=== PATIENT | female | born 1990 | race Caucasian/White ===

== ENCOUNTER → 2017-05-02 | Outpatient (CLI) | payer OTHER | LOC: FIMAGING 14:13 | PROVIDERS: ATTEND Student in an Organized Health Care Education/Training Program | DX: Z34.01 Encounter for supervision of normal first pregnancy, first trimester (principal); Z3A.12 12 weeks gestation of pregnancy ==

== ENCOUNTER → 2017-06-20 | Outpatient (CLI) | payer OTHER | LOC: FIMAGING 11:56 | PROVIDERS: ATTEND Student in an Organized Health Care Education/Training Program | DX: O28.5 Abnormal chromosomal and genetic finding on antenatal screening of mother (principal); Z3A.19 19 weeks gestation of pregnancy ==

== ENCOUNTER → 2017-07-11 | Outpatient (CLI) | payer OTHER | LOC: FIMAGING 08:51 | PROVIDERS: ATTEND Student in an Organized Health Care Education/Training Program | DX: O09.292 Supervision of pregnancy with other poor reproductive or obstetric history, second trimester (principal); Z3A.22 22 weeks gestation of pregnancy ==

== ENCOUNTER → 2017-08-04 | Outpatient (CLI) | payer OTHER | LOC: FIMAGING 09:18 | PROVIDERS: ATTEND Student in an Organized Health Care Education/Training Program | DX: Z34.02 Encounter for supervision of normal first pregnancy, second trimester (principal); Z3A.25 25 weeks gestation of pregnancy ==

== ENCOUNTER → 2017-09-08 | Outpatient (CLI) | payer OTHER | LOC: FIMAGING 09:14 | PROVIDERS: ATTEND Student in an Organized Health Care Education/Training Program | DX: Z34.03 Encounter for supervision of normal first pregnancy, third trimester (principal); Z3A.30 30 weeks gestation of pregnancy ==